=== PATIENT | female | born 1975 | race Asian ===

== ENCOUNTER 2017-11-25 11:39 | Inpatient (IN) | payer SELFPAY ==
--- NOTE | 2017-11-25 11:54 | EDPHY ---
H & P HPI/ROS: CHIEF COMPLAINT: Traumatic back pain HISTORY OF PRESENT ILLNESS: The patient is a 42 y/o female arriving via EMS complaining of left lower back pain secondary to falling while skiing this morning around 09:00, about 3 hours ago. Her family member describes falling on her back then sliding down the hill until she hit a tree stump. She denies striking her head or losing consciousness. She was not wearing a helmet. She has severe pain in her lumbar spine, left flank, and lower left ribs. She denies dyspnea, extremity injuries, weakness, paresthesias. She received 100mcg IV Fentanyl en route with some control of her pain. She states she is normally healthy. REVIEW OF SYSTEMS: A ten point review of systems was performed and is negative with the exception of the items mentioned in the HPI. Past medical history: Denies Past surgical history: Denies Family history: Noncontributory Social history: at bedside. She has 2 children. 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 Her is a food science professor. They are visiting [place], on a ski vacation. General: The patient appears uncomfortable. The patient is alert. [place] Coma Score is 15. Head: Normocephalic/atraumatic. No Rodgers's sign. No raccoon eyes. Neck: Nontender with palpation of the cervical spine in the midline. No pain with active range of motion of her neck. Trachea is midline. Eyes: PERRLA. EOMI. No subconjunctival hemorrhage. Ears nose and throat: No hemotympanums. Nares are patent and without clotted nasal blood. No dental injury or malocclusion. Airway is patent. Lungs and thorax: Breath sounds are equal and audible bilaterally. No wheezes , rales, or rhonchi. Tenderness to the left lower lateral ribcage, no crepitus or bony deformity appreciated. Cardiac: Heart has regular rate and rhythm without murmur, rub, or gallop. Abdomen: Soft, nontender, and nondistended. No guarding or rebound. Rectal: As per Dr. Sanz please exam. Back: Tenderness over upper lumbar-lower thoracic midline spine. Left flank tenderness. No ecchymosis or abrasions. No step-off. Skin: No ecchymosis. Skin is warm and dry. Extremities: No bony point tenderness with evaluation of all 4 extremities, hands, and feet. Pelvis is stable. Hips are nontender. Pulses: 2+ femoral and dorsalis pedis pulses bilaterally. Neuro: The patient is alert and oriented. GCS 15. Sensation is intact to light touch over all 4 extremities. Strength is 5 over 5 with testing of major motor groups. PERRLA. EOMI. Facial expression symmetric. Hearing intact to spoken voice. Tongue midline. Facial sensation intact to light touch. SCM and shoulder shrug 5/5. Constitutional: Initial Vital Signs Temperature (C) 36.5 C 11/25/17 12:04 Heart Rate 71 11/25/17 12:04 Respiratory Rate 18 11/25/17 12:04 Blood Pressure 120/65 11/25/17 12:04 O2 Sat (%) 93 11/25/17 12:04 O2 Delivery Mode Room Air Allergies/Adverse Reactions: penicillin G Allergy (Verified 11/25/17 12:04) Home Medications: Medication Instructions Recorded Cholecalciferol Vit D3 [Vitamin D3 1,000 units PO DAILY 11/25/17 (*)] Herbals/Supplements -Info Only 1 ea PO DAILY 11/25/17 Multivitamins [Multivitamin (*)] 1 each PO DAILY 11/25/17 Medical Decision Making - Diagnostics Imaging: Discussed imaging studies w/ call center dispatcher Radiologist, I viewed and interpreted images myself ED Course/Re-evaluation: This is a normally healthy 42 y/o female presenting with thoraco lumbar back pain after falling while skiing and hitting a tree stump. She has severe tenderness over the T-L junction with left flank and left lower lateral rib tenderness. She is neurovascularly intact with no visible trauma on exam. Hemodynamically stable & equal breath sounds bilaterally. Plan for bedside FAST exam, labs, pain management, and CTs of lumbar spine, thoracic spine, chest, and abdomen/pelvis. 100mcg IV Fentanyl administered for pain. Procedure: FAST Trauma ultrasound. Limited transthoracic ultrasound was performed and interpreted by myself for the indication of: blunt trauma utilizing the thoracoabdominal emergency ultrasound protocol. The pericardium was visualized and found to be negative for pericardial fluid. Limited abdominal ultrasound for blunt abdominal trauma. 1) The right upper quadrant was visualized and was found to be negative for intraperitoneal fluid. 2) The left upper quadrant was visualized and found to be negative for intraperitoneal fluid. Limited pelvic ultrasound was conducted for abdominal trauma. The bladder was visualized and did not reveal an anechoic area outside of the adjacent urinary bladder. Bladder was distended with urine. The study was felt to be negative for free intraperitoneal fluid The procedure was performed by myself, Dr. Yao. Initial report of CT scans reveal a T12 burst fracture with spinous process fractures from T6 through L1 and posterior left rib fractures T7 through T12. Awaiting radiologist's interpretation of CTs. Bilateral hemothoraces, worse on the left than on the right. No pneumothorax. Trauma surgery paged. 1341: Consulted with Dr. Hauser, surgeon, he will assess patient in the ED. 1400: Consulted with Dr. Deras, neurosurgery. He requests a thoracic spine MRI. Neurosurgery will assess patient. 1403: Consulted with Dr. Hauser in the ED and updated him on CT results. He will assess patient in the ED. This patient underwent serial examinations while in the emergency department. She was placed on spinal precautions after her initial evaluation. She remained neurologically intact with normal motor and sensory function throughout her stay in the department. She is being admitted to the intensive care unit. She will likely need surgery for an unstable T12 burst fracture. She received IV Dilaudid for pain control. Critical care time spent by me, Dr. Yao, exclusively with this patient was 45 minutes, exclusive of PA time and exclusive of procedures. The organ system at risk was multisystem including pulmonary and neurologic. Time spent in urgent assessment, serial assessments of patient, discussion with patient and family, consideration of interventions, review of CT scans, and consultation with neurosurgery, radiology, and trauma surgery. Differential Diagnosis: I considered a differential diagnosis of traumatic injury that includes but is not limited to intracranial hemorrhage, skull fracture, concussion, vertebral injury, spinal cord injury, intrathoracic injury, intra-abdominal injury, long bone fractures, contusions, abrasions, and lacerations. - Data Points Medications Given: Famotidine/Sodium Chloride (Pepcid 20 Mg (Premix)) 50 mls @ 200 mls/hr IV Q12HRS ROSARIO Stop: 05/24/18 20:59 Last Admin: 11/25/17 21:56 Dose: 50 mls Morphine Sulfate (Morphine) 1 - 2 mg IVP Q1HR PRN PRN Reason: Pain, Severe Unable to Take PO Stop: 12/05/17 15:22 Last Admin: 11/26/17 06:43 Dose: 2 mg Ondansetron HCl (Zofran) 4 mg IVP Q4HRS PRN PRN Reason: Nausea/Vomiting, Can't Take PO Stop: 05/24/18 15:22 Last Admin: 11/25/17 17:29 Dose: 4 mg Senna/Docusate Sodium (Senokot-S) 1 - 2 tab PO BID ROSARIO PRN Reason: Protocol Stop: 05/24/18 20:59 Last Admin: 11/25/17 21:55 Dose: 1 tab Discontinued Medications Fentanyl (Sublimaze) 100 mcg IVP EDNOW ONE Stop: 11/25/17 12:32 Last Admin: 11/25/17 12:31 Dose: 100 mcg Hydromorphone HCl (Dilaudid) 0.5 mg IVP EDNOW ONE Stop: 11/25/17 15:09 Last Admin: 11/25/17 15:21 Dose: 0.5 mg Departure - Departure Disposition: [facility] Acute Clinical Impression: T12 burst fracture, Hemothorax on left, Hemothorax, right Fracture of spinous process of thoracic vertebra Qualifiers: Encounter type: initial encounter Fracture type: closed Qualified Code(s): S22.008A - Other fracture of unspecified thoracic vertebra, initial encounter for closed fracture Fracture of spinous process of lumbar vertebra Qualifiers: Encounter type: initial encounter Fracture type: closed Qualified Code(s): S32.009A - Unspecified fracture of unspecified lumbar vertebra, initial encounter for closed fracture Ribs, multiple fractures Qualifiers: Encounter type: initial encounter Fracture type: closed Laterality: left Qualified Code(s): S22.42XA - Multiple fractures of ribs, left side, initial encounter for closed fracture Condition: Serious Report Scribed for: Dolly Yao Report Scribed by: Aubree Contreras Date of Report: 11/25/17 Time of Report: 11:55 Physician Review and Approval Statement: 11/25/17 11:54 Portions of this note were transcribed by the medical doctor nuclear medicine. I, Dr. Dolly Yao, personally performed the history, physical exam, and medical decision- making; and confirmed the accuracy of the information in the transcribed note.
[2017-11-25] MEDS ORDERED: fentaNYL 100 MCG/2 ML INJ ONE (12:30)
[2017-11-25] MEDS ORDERED: fentaNYL 100 MCG/2 ML INJ IVP ONE (12:31)
[2017-11-25] MEDS ORDERED: IOPAMIDOL (ISOVUE-300) 100 ML BTL ONE (12:53)
[2017-11-25 14:35] LABS: PLATELET COUNT 261 10^3/uL (150-400)
[2017-11-25] MEDS ORDERED: HYDROmorphONE/DILAUDID 1 MG/ML INJ ONE (15:02)
[2017-11-25] MEDS ORDERED: HYDROmorphONE/DILAUDID 1 MG/ML INJ IVP ONE (15:08)
[2017-11-25] MEDS ORDERED: ONDANSETRON 4 MG/2 ML VIAL IVP PRN (15:23)
[2017-11-25] MEDS ORDERED: NALOXONE HCL 0.4 MG/ML INJ IVP PRN (15:23)
[2017-11-25] MEDS ORDERED: LORazepam 2 MG/ML INJ IVP PRN (15:23)
--- NOTE | 2017-11-25 15:29 | PDGENHP ---
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 She was at [email or web address] and lost control and skidded into the base of a tree. She did not lose consciousness. She was brought by skills instructor and EMS to the hospital for evaluation. She complains of back pain and left side pain. She denies other injury or trauma at this time. History Information - Allergies/Home Medication List Allergies/Adverse Reactions: penicillin G Allergy (Verified 11/25/17 12:04) Home Medications: Cholecalciferol Vit D3 [Vitamin D3 (*)] 1,000 units PO DAILY 11/25/17 [Last Taken Unknown] Herbals/Supplements -Info Only 1 ea PO DAILY 11/25/17 [Last Taken Unknown] Multivitamins [Multivitamin (*)] 1 each PO DAILY 11/25/17 [Last Taken Unknown] I have personally reviewed and updated: family history, medical history, social history, surgical history - Past Medical History no pertinent PMH - Surgical History Reports: no pertinent surgical hx - Family History Positive for: non-pertinent - Social History Smoking Status: Never smoked Review of Systems Review of Systems: ROS: 10pt was reviewed & negative except for what was stated in HPI & below Muscolosketal: Reports: back pain Physical Exam Physical Exam: GCS 15. Alert and oriented x4 Sclerae anicteric pupils 3 mm reactive Bite intact/Midface stable trachea midline regular rate and rhythm Clear to auscultation bilaterally Abdomen soft nontender nondistended no hernias no ecchymoses no hepatosplenomegaly Hip stable to lateral compression 2+ over 2+ femoral dorsalis pedis pulses Skin normal turgor and tone Neurologically intact Back with step-off in the mid back with tenderness over mid and lower thoracic spine Normal rectal tone no gross blood Temp Pulse Resp BP Pulse Ox 36.5 C 72 16 120/78 97 11/25/17 12:04 11/25/17 13:35 11/25/17 13:35 11/25/17 13:35 11/25/17 13:35 Lab Data & Imaging Review 11/25/17 14:22 11/25/17 14:22 WBC 15.81 10^3/uL (3.80-9.50) H 11/25/17 14:22 RBC 4.04 10^6/uL (4.18-5.33) L 11/25/17 14:22 Hgb 12.5 g/dL (12.6-16.3) L 11/25/17 14:22 Hct 37.5 % (38.0-47.0) L 11/25/17 14:22 MCV 92.8 fL (81.5-99.8) 11/25/17 14:22 MCH 30.9 pg (27.9-34.1) 11/25/17 14:22 MCHC 33.3 g/dL (32.4-36.7) 11/25/17 14: RDW 12.8 % (11.5-15.2) 11/25/17 14: Plt Count 261 10^3/uL (150-400) 11/25/17 14:22 MPV 9.7 fL (8.7-11.7) 11/25/17 14:22 Neut % (Auto) 91.7 % (39.3-74.2) H 11/25/17 14:22 Lymph % (Auto) 3.9 % (15.0-45.0) L 11/25/17 14:22 [place] % (Auto) 3.7 % (4.5-13.0) L 11/25/17 14: Eos % (Auto) 0.0 % (0.6-7.6) L 11/25/17 14:22 Baso % (Auto) 0.3 % (0.3-1.7) 11/25/17 14: Nucleat RBC Rel Count 0.0 % (0.0-0.2) 11/25/17 14:22 Absolute Neuts (auto) 14.50 10^3/uL (1.70-6.50) H 11/25/17 14:22 Absolute Lymphs (auto) 0.62 10^3/uL (1.00-3.00) L 11/25/17 14:22 Absolute Monos (auto) 0.59 10^3/uL (0.30-0.80) 11/25/17 14:22 Absolute Eos (auto) 0.00 10^3/uL (0.03-0.40) L 11/25/17 14:22 Absolute Basos (auto) 0.04 10^3/uL (0.02-0.10) 11/25/17 14:22 Absolute Nucleated RBC 0.00 10^3/uL (0-0.01) 11/25/17 14:22 Immature Gran % 0.4 % (0.0-1.1) 11/25/17 14:22 Immature Gran # 0.06 10^3/uL (0.00-0.10) 11/25/17 14:22 Sodium 140 mEq/L (135-145) 11/25/17 14:22 Potassium 3.9 mEq/L (3.5-5.2) 11/25/17 14:22 Chloride 101 mEq/L (97-110) 11/25/17 14:22 Carbon Dioxide 27 mEq/l (22-31) 11/25/17 14:22 Anion Gap 12 mEq/L (8-16) 11/25/17 14:22 BUN 16 mg/dL (7-23) 11/25/17 14:22 Creatinine 0.6 mg/dL (0.6-1.0) 11/25/17 14:22 Estimated GFR > 60 11/25/17 14:22 Glucose 113 mg/dL (70-100) H 11/25/17 14:22 Calcium 9.2 mg/dL (8.5-10.4) 11/25/17 14:22 Imaging Review: Imaging Impressions Abdomen CT 11/25/17 12:45 Impression: No abdominal or pelvic injury. Chest CT 11/25/17 12:45 Impression: 1. Complex thoracic spine fractures as separately described on CT scan of the thoracic spine. 2. No additional fractures in the chest. 3. No mediastinal injury. Findings were discussed with Dr. Jessica Hauser and Dr. Dolly Yao at [address] 11/25/17 12:45 Impression: L1 posterior spinous process fracture with displacement. Otherwise, no additional fractures in the lumbar spine. Thoracic Spine CT 11/25/17 12:45 Impression: 1. Unstable burst fracture of T12, with a minimal amount of retropulsed fragment. 2. Despite of the levoscoliosis and the reversal of the thoracolumbar lordosis caused by the burst fracture, there is no CT evidence for significant spinal canal stenosis. 3. Spinous process fractures from T6 to L1. 4. Left-sided costovertebral posterior rib junctional fractures from T7 to T12, causing hemothorax on the left. Findings were discussed with Dr. Dolly Yao, and also with Dr. Edin Hauser, at 1350 hours. Visualized and Interpreted imaging results: Yes Assessment & Plan Assessment: Fracture of spinous process of lumbar vertebra (Acute) Fracture of spinous process of thoracic vertebra (Acute) Hemothorax, right (Acute) T12 burst fracture (Acute) Plan: chest tube if patient goes to the operating room. The risks benefits and alternatives to this have been outlined with the patient and her . Acutely the patient has no respiratory distress with sats of 93% on room air respiratory rate of 16 Neurosurgery consultation has been requested for her spinal injuries including T6 through L1 spinous process fractures some minimally displaced, T12 burst fracture with compression and loss of lumbar lordosis rib fracture posterior associated with vertebral body fracture of T12 not significant except for contribution to hemothorax
--- NOTE | 2017-11-25 17:03 | GCON ---
[f rep st] CONSULTATION PULMONARY/CRITICAL CARE CONSULTATION DATE OF CONSULTATION: 11/25/2017 REFERRING PHYSICIAN: Edin Hauser MD REASON FOR REFERRAL: Evaluation and management of pleural effusion/hemothorax. HISTORY OF PRESENT ILLNESS: The patient is a 42-year-old woman who was in her usual state of good he alth when she was skiing today at [place] and lost control. She skidded into the base of a tree. The re was no loss of consciousness. She was brought into the emergency department, complaining of back and left-sided pain. She denies any loss of motor or sensory function in her legs. She denies any s hortness of breath. She does have significant back pain. She does not have any cough. She denies n ausea or vomiting. PAST MEDICAL HISTORY: No chronic medical conditions. MEDICATIONS: Multivitamins and supplements. ALLERGIES: Penicillin. SOCIAL HISTORY: The patient does not smoke or drink. FAMILY HISTORY: Unremarkable. REVIEW OF SYSTEMS: A 10-point review of systems adds nothing to the history of present illness. PHYSICAL EXAMINATION: GENERAL: The patient is awake and alert. She is in no acute distress. VITAL SIGNS: Blood pressure is 104/55 with a heart rate of 89. She is afebrile. Oxygen saturations are 92% on 2 L. HEENT: Normocephalic and atraumatic. No icterus. NECK: No adenopathy. Trachea is mi dline. CHEST: Clear to auscultation. CARDIAC: Regular rate and rhythm without murmur. ABDOMEN: Soft, nontender. Bowel sounds are present. EXTREMITIES: No clubbing, cyanosis, or edema. NEURO: The patient is awake and alert. She has no motor or sensory deficits. LABORATORY DATA: Hemoglobin is 12.5. Chemistry group was normal. CT scan of the chest shows a small left pleural effusion and an unstable burst fracture of T12. She has spine fractures from T6 to L1. Images were reviewed by me. ASSESSMENT: 1. T12 burst fracture. This is unstable based on radiographic criteria. Neurosurgery has been cons ulted. 2. Pleural effusion. This is likely a hemothorax. It is fairly small at this point. It may contin ue to enlarge. She does not have any significant respiratory compromise currently. RECOMMENDATIONS: 1. Pain control. 2. Neurosurgery consult. 3. Follow pleural effusion/hemothorax. If she goes to the operating room for thoracic spine surgery , it may be reasonable to proceed with a chest tube placement at that time. /[id number]/MODL
[2017-11-25] MEDS ORDERED: BISACODYL 10 MG SUPP PR PRN (17:27)
[2017-11-25] MEDS ORDERED: MAGNESIUM HYDROXIDE 30 ML UDCUP PO PRN (17:27)
[2017-11-25] MEDS ORDERED: diphenhydrAMINE 25 MG CAP PO PRN (17:27)
[2017-11-25] MEDS ORDERED: POLYETHYLENE GLYCOL 3350 17 GM PKT PO PRN (17:27)
[2017-11-25] MEDS ORDERED: METHOCARBAMOL 750 MG TAB PO PRN (17:27)
[2017-11-25] MEDS ORDERED: ONDANSETRON DISINTEGRATING 4 MG TAB PO PRN (17:27)
[2017-11-25] MEDS ORDERED: LACTULOSE 20 GM/30 ML UDCUP PO PRN (17:27)
[2017-11-25] MEDS ORDERED: D5W 1/2 NS W/ 20 KCl/L 1,000 ML IV SCH (17:30)
--- NOTE | 2017-11-25 20:20 | GCON ---
[f rep st] CONSULTATION DATE OF CONSULTATION: 11/25/2017 TIME OF EVALUATION: 5 p.m. REASON FOR CONSULTATION: T12 burst fracture. HISTORY OF PRESENT ILLNESS: Please note, this was a very healthy 42-year-old woman who is visiting here from [facility] with her family who states she was skiing today at [place] when she skidded into a tree stump. She did not have associated loss of consciousness and was wearing a helmet. When she hit the ground, she had immediate onset of thoracolumbar pain in the midline. No tingling, numbness, pain, or weakness into the lower extremities. She was taken by the ski technician in a sled with spinal precautions [place] and subsequently brought by EMS to [facility] for further evaluation and management. The patient was found to have a pleural effusion and imaging studies demonstrated a T12 burst fracture. The patient was subsequently admitted to the trauma service and a neurosurgical consultation requested. At this time, the patient is having some ongoing thoracolumbar back pain which is stable. No numbness, tingling, pain, or weakness of the lower extremities. She denies any saddle anesthesia. PAST MEDICAL HISTORY: None. MEDICATIONS: Prior to admission, multivitamins and supplements. ALLERGIES: Penicillin. SOCIAL HISTORY: The patient does not smoke or drink. She is and has 2 small children age 9 and 7 who are visiting with her. 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 FAMILY HISTORY: Negative for any neurological disorders. REVIEW OF SYSTEMS: Complete 10-point review of systems from the patient intake form were reviewed by myself, significant only for those noted above in the HPI. PHYSICAL EXAMINATION: VITALS: Blood pressure is 104/55. Heart rate is 89, respiratory rate 26. She is saturating 92% currently on 2 L nasal cannula. Temperature is 37 degrees. GENERAL: The patient is lying in the bed, is in no acute distress. She is quite pleasant and cooperative with the examination. Affect is appropriate. and children are at the bedside. HEENT: Head is atraumatic, normocephalic. Pupils are equal, round, and reactive to light bilaterally. Extraocular movements are intact. Face is symmetric. Tongue protrudes midline. Uvula and palate elevate symmetrically. She has intact sensation to her face bilaterally. Shoulder shrug is symmetric. MOTOR EXAM: Shows 5/5 strength with bilateral crop research scientist strength, biceps, triceps, deltoid, bilateral hip flexion, knee flexion and extension, plantar dorsiflexion, and extensor hallucis longus. SENSORY EXAM: She has intact sensation to light touch throughout all major dermatomes of the bilateral upper and lower extremities and throughout the flank. REFLEXES: She has 1+ reflexes at the bilateral brachioradialis and patella. She has no Mckeon's and no Babinski. NEUROLOGIC: Cranial nerves 2 through 12 appear to be intact. Extraocular movements are intact. Pupils are equal, round, and reactive to light bilaterally. Tongue protrudes midline. Uvula and palate elevate symmetrically. She has intact sensation on her face bilaterally. Conversation is intact to hearing bilaterally. Other: The patient has no evidence of any saddle anesthesia, is able to feel her Velazquez catheter. Denies any perianal or perineal numbness. MEDICAL DECISION MAKING: Patient underwent a CT and MRI of the thoracic spine, reviewed by myself on the [facility] PAC system. There is evidence of an unstable burst fracture of T12 with minimal amount of retropulsed fragment. There are spinous process fractures from T6 to L1 with costovertebral posterior rib junctional fractures from T7 to T12 with hemothorax on the left. MRI demonstrates effacement of the subarachnoid fluid around the spinal cord which appears to be normal in signal characteristics without evidence of transsection or contusions. There is distraction injury to the posterior elements of T12. The remainder of the thoracic spinal canal is intact and spinal cord remains normal signal characteristics throughout. There is a small epidural hematoma adjacent to the thoracic spinal cord without evidence of intracordal or cord transection with adjacent prevertebral hemorrhage. ASSESSMENT AND PLAN: The patient is a 42-year-old, very healthy [place] woman who is visiting [place] on a ski trip today when she had a skiing accident and developed acute onset of back pain with no neurological deficits. She was found to have an unstable T12 burst fracture. I reviewed the films with the patient and her in the intensive care unit room today. I discussed with them the treatment options available to them including bracing versus surgical intervention. I discussed the risks, benefits, pros and cons of both options for them. I am worried about the degree of instability of the spinal fracture itself, and given these findings they agree and wish to proceed forth with surgical stabilization. Dr. Deras is evp chief exploration officer this week and I have discussed the case with him and explained to the family that he will be doing the case tomorrow morning, which we have booked as a posterior T11 to L1 fusion with decompression for stabilization. We will order a Jessica brace for her to wear whenever greater than 30 degrees and out of bed. We will go and raise her head of bed up to 30 degrees for the evening but keep her on spinal precautions until surgery in the morning. We will let her eat and keep her n.p.o. after midnight. We will have antibiotics on-call to the OR and keep her on q.1 hour neuro checks this evening. I discussed this with the patient and her . If she has any changes in neurological condition, we will take her emergently to surgery. They understand the risks of surgery to include, but not limited to , stroke, , pneumonia, bleeding, infection, spinal fluid leak. Further additional surgery required, bone or hardware implant failure, paralysis, worsening of neurological condition or no improvement. Consents will be signed in the morning by Dr. Deras and the team when they arrive. We will also let Dr. Hauser know of the trauma service in the event that a chest tube is required preoperatively. All of their questions were answered this evening. /[id number]/MODL MTDD
[2017-11-25] MEDS: SENNOSIDES/DOCUSATE SODIUM TAB PO SCH (21:55)
[2017-11-25] MEDS: FAMOTIDINE 20 MG/NACL 50 ML IV SCH (21:56)
[2017-11-26] MEDS ORDERED: THROMBIN (BOVINE) 20,000 UNIT VIAL TP ONE ×2 (07:17→07:19)
[2017-11-26] MEDS ORDERED: CHLORHEXIDINE GLUC HIBICLENS 118 ML BTL TP ONE (07:17)
[2017-11-26] MEDS ORDERED: BACITRACIN 50,000 UNITS/10 ML SYR IRR ONE (07:18)
[2017-11-26] MEDS ORDERED: BUPIVACAINE 0.25% 30 ML SDV ONE (07:18)
[2017-11-26] MEDS ORDERED: CITRATE DEXTROSE SOLN 500 ML BAG ONE (07:19)
[2017-11-26] MEDS ORDERED: AVITENE POWDER 1 GM JAR TP ONE (07:20)
[2017-11-26] MEDS ORDERED: SURGIFLO MATRIX KIT WITH THROMBIN 8ml TP ONE (07:37)
--- NOTE | 2017-11-26 07:51 | PDANEPAE ---
ANE History of Present Illness T11- L1 fusion for unstable T12 burst fx ANE Past Medical History - Pulmonary History Hx Oxygen in Use at Home: No Hx Sleep Apnea: No Sleep Apnea Screening Result - Last Documented: Negative Pulmonary History Comment: L hemothorax - Endocrine History Hx Diabetes: No ANE Review of Systems Review of systems is: negative Review of Systems: - Exercise capacity Exercise capacity: >=4 METS ANE Patient History - Allergies Allergies/Adverse Reactions: penicillin G Allergy (Verified 11/25/17 12:04) - Home Medications Home medications: home medication list seen and reviewed Home Medications: Cholecalciferol Vit D3 [Vitamin D3 (*)] 1,000 units PO DAILY 11/25/17 [Last Taken Unknown] Herbals/Supplements -Info Only 1 ea PO DAILY 11/25/17 [Last Taken Unknown] Multivitamins [Multivitamin (*)] 1 each PO DAILY 11/25/17 [Last Taken Unknown] - NPO status NPO Status: no food or drink >8 hours NPO Since - Liquids (Date): 11/26/17 NPO Since - Liquids (Time): 20:00 NPO Since - Solids (Date): 11/25/17 NPO Since - Solids (Time): 14:00 - Anes Hx Anes Hx: no prior problems - Smoking Hx Smoking Status: Never smoked - Family Anes Hx Family Anes Hx: none ANE Labs/Vital Signs - Labs Result Diagrams: 11/25/17 14:22 11/25/17 14:22 - Vital Signs Blood Pressure: 106/59 Heart Rate: 77 Respiratory Rate: 31 O2 Sat (%): 99 Height: 162.56 cm Weight: 52.163 kg ANE Physical Exam - Airway Neck exam: FROM Mallampati Score: Class 2 Mouth exam: normal dental/mouth exam - Pulmonary Pulmonary: no respiratory distress - Cardiovascular Cardiovascular: regular rate and rhythym - ASA Status ASA Status: III ANE Anesthesia Plan Anesthesia Plan: general endotracheal anesthesia
[2017-11-26] MEDS ORDERED: MIDAZOLAM 2 MG/2 ML VIAL IVP ONE (08:06)
[2017-11-26] MEDS ORDERED: MIDAZOLAM 2 MG/2 ML VIAL ONE (08:13)
[2017-11-26] MEDS ORDERED: REMIFENTANIL HCL 1 MG VIAL ONE (08:27)
[2017-11-26] MEDS ORDERED: DEXAMETHASONE 4 MG/ML VIAL ONE (08:27)
[2017-11-26] MEDS ORDERED: HYDROmorphONE/DILAUDID 2 MG/ML INJ ONE (08:27)
[2017-11-26] MEDS ORDERED: ONDANSETRON 4 MG/2 ML VIAL ONE (08:27)
[2017-11-26] MEDS ORDERED: PROPOFOL 200 MG/20 ML VIAL ONE (08:27)
[2017-11-26] MEDS ORDERED: ROCURONIUM 50 MG/5 ML VIAL ONE (08:27)
[2017-11-26] MEDS ORDERED: PROPOFOL/EMULSION 500 MG/50 ML BOTTLE IV ONE (08:27)
[2017-11-26] MEDS ORDERED: LIDOCAINE 2% 100 MG/5 ML SYR ONE (08:27)
[2017-11-26] MEDS ORDERED: fentaNYL 100 MCG/2 ML INJ ONE ×2 (08:27→11:29)
[2017-11-26] MEDS ORDERED: ceFAZolin 1 GM VIAL ONE ×2 (09:01)
[2017-11-26] MEDS ORDERED: THROMBIN (BOVINE) 5,000 UNIT VIAL TP ONE (09:10)
[2017-11-26] MEDS ORDERED: NALOXONE HCL 0.4 MG/ML INJ IVP PRN ×2 (10:48→11:04)
[2017-11-26] MEDS ORDERED: morphINE PCA 30 MG/30 ML PCA IV PRN (10:48)
--- NOTE | 2017-11-26 10:55 | SOAPPROG ---
SOAP Progress Note Assessment/Plan: Assessment: 42 yo F sp T11-L1 fusion with T12 laminectomy of T21 burst fracture Plan: stable ok to transfer to 3N if ok with Dr Guardado PT/OT jewit brace when out of bed ok to start lovenox tomorrow please call with neuro changes seen by Dr Deras 11/26/17 10:54 Subjective: + back pain, no leg pain, no weakness. Objective: Vital Signs Temp Pulse Resp BP Pulse Ox 36.9 C 77 31 H 106/59 L 99 11/26/17 04:00 11/26/17 08:04 11/26/17 08:04 11/26/17 08:04 11/26/17 08:04 Laboratory Results 11/25/17 14:22 11/25/17 14:22 11/25/17 11/26/17 11/27/17 05:59 05:59 05:59 Intake Total 500 Output Total 950 Balance -450 awake, alert PERRL, EOMI TORO x4 + light touch ICD10 Worksheet Patient Problems: Problems Problem Status Onset Fracture of spinous process of lumbar vertebra Acute Fracture of spinous process of thoracic vertebra Acute Hemothorax on left Acute Hemothorax, right Acute Ribs, multiple fractures Acute T12 burst fracture Acute
[2017-11-26] MEDS ORDERED: NS W/ 20 KCl/L 1,000 ML IV SCH (11:00)
--- NOTE | 2017-11-26 11:03 | TRAUMAPN ---
Assessment/Plan: tertiary exam and daily exam no overnight events. pain controlled. no WIGGINS. no neck pain. referred left side abd pain. no ext numbness or tingling. afebrile. 100/70 70's 20-30 comfortable HEENT normal Neck nontender Heart with subtle 2/6 LUSB systolic murmur. Lungs clear Abd soft, mild left side tenderness - appear referred Pelvic nontender BUE / BLE normal Neuro - no deficits CXR - no progressive left chest fluid or PTX Unstable burst fracture of T12, with a minimal amount of retropulsed fragment. Spinous process fractures from T6 to L1. Left-sided costovertebral posterior rib junctional fractures from T7 to T12 with small hemothorax For OR today Available for chest tube placement if needed - suspect all retropleural blood from rib/spine trauma - discussed with family and anesthesia No new surgical issues at this time To floor postop if no intraop concerns Objective: Vital Signs Temp Pulse Resp BP Pulse Ox 36.9 C 77 31 H 106/59 L 99 11/26/17 04:00 11/26/17 08:04 11/26/17 08:04 11/26/17 08:04 11/26/17 08:04 Laboratory Results 11/25/17 14:22 11/25/17 14:22 11/25/17 11/26/17 11/27/17 05:59 05:59 05:59 Intake Total 500 Output Total 950 Balance -450
[2017-11-26] MEDS ORDERED: ONDANSETRON 4 MG/2 ML VIAL IVP PRN (11:04)
[2017-11-26] MEDS ORDERED: DIAZEPAM 10 MG/2 ML SYR IVP PRN (11:04)
[2017-11-26] MEDS ORDERED: OXYCODONE/APAP 5/325 TAB PO PRN (11:04)
[2017-11-26] MEDS ORDERED: PROMETHAZINE HCL 25 MG/ML INJ IVP PRN (11:04)
[2017-11-26] MEDS ORDERED: MEPERIDINE 25 MG/ML SYR IVP PRN (11:04)
[2017-11-26] MEDS ORDERED: HYDROCODONE/APAP 5/325 TAB PO PRN (11:04)
[2017-11-26] MEDS ORDERED: DEXAMETHASONE 4 MG/ML VIAL IVP PRN (11:04)
[2017-11-26] MEDS ORDERED: ACETAMINOPHEN 500 MG TAB PO PRN (11:04)
[2017-11-26] MEDS: SENNOSIDES/DOCUSATE SODIUM TAB PO SCH ×2 (11:06→22:52)
--- NOTE | 2017-11-26 11:06 | POSTANESTH ---
Post Anesthetic Evaluation Cardiovascular Status: Normal, Stable, Similar to Pre-Op Cond Respiratory Status: Normal, Stable, Similar to Pre-op Cond. Level of Consciousness/Mental Status: Can Participate in Eval, Mildly Sleepy, Arousable Pain Control: Adequate, Prn Tx Ordered Nausea/Vomiting Control: Adequate, Prn Tx Ordered Complications Possibly Related to Anesthesia: None Noted
[2017-11-26] MEDS: fentaNYL 100 MCG/2 ML INJ IVP PRN ×2 (11:30→11:35)
[2017-11-26] MEDS: FAMOTIDINE 20 MG/NACL 50 ML IV SCH (13:03)
--- NOTE | 2017-11-26 13:17 | GOP ---
[f rep st] OPERATIVE REPORT DATE OF OPERATION: 11/26/2017 SURGEON: Tyshawn Deras MD NEUROSURGEON: Tyshawn Deras MD. CLIP BAKER: MAXIME Matos. PREOPERATIVE DIAGNOSIS: T12 burst fracture. POSTOPERATIVE DIAGNOSIS: T12 burst fracture. PROCEDURE PERFORMED: 1. Open reduction and internal fixation of T12 burst fracture. 2. Placement of segmental pedicle screw fixation at T11 and L1. 3. Posterior spinal fusion, T11 to L1. 4. T11, T12 laminectomies. 5. Use of the operative microscope. 6. O-arm stereotactic navigation for screw placement. 7. [place] of local autograft. 8. Use of allograft bone morphogenetic proteins. 9. Intraoperative neurophysiological monitoring, including somatosensory evoked potentials and motor evoked potentials. FINDINGS: Successful open reduction and internal fixation of T12 burst fracture. SPECIMENS: There were no specimens. ESTIMATED BLOOD LOSS: 100 cc. INDICATIONS: The patient is a 42-year-old woman visiting from [facility]. She was skiing yesterday when she had a fall and presented to the [facility] emergency room with back pain. CT of the thoracic spine revealed a T12 burst fracture with some kyphosis and slight coronal deformit y. My partner Dr. Valverde saw her then and discussed the options of bracing versus surgery with her, and she preferred surgery as the recovery time may be better and we could fix her deformity. She pre sents electively this morning for surgery. She is neurologically intact. DESCRIPTION OF PROCEDURE: After informed consent was obtained from the patient, the patient was brou ght to the operating room and a formal time-out was performed, identifying the patient by name, [facility], avon record number, and date of . Preoperative antibiotics were given, the endotracheal tube was placed, and general endotracheal anesthesia was smoothly induced. The patient was then turned to the prone position on the Rosalio table. All appropriate pressure points were padded and checked. All appropriate leads were placed for intraoperative neurophysiologic monitoring, including somatosensory evoked potentials and motor evoked potentials. At this point, the lower thoracolumbar region was prepped and draped in the normal sterile fashion. The O-arm was brought into the field, and AP and lateral x-rays confirmed the location of the incisio n spanning the pedicles of T11 and L1. 10 cc of 0.25% Marcaine with epinephrine was infiltrated in t he skin for hemostasis. A skin incision made using a 10 blade, and the subcutaneous tissues were dis sected using monopolar electrocautery. The fascia was opened in the midline, and all the spinous pro cesses of T11, T12, and L1 were completely fractured and were removed and morselized for local autogr aft. The paraspinous muscles were taken down laterally, exposing the transverse processes of T11 and L1. The fracture at T12 was significant, and the left-sided facet was completely disrupted, and the ligam ent was significantly injured as well. The stereotactic arc was then placed on the L1 spinous proces s and an O-arm spin was obtained, confirming the appropriate anatomy at T11 to L1. This was then use d to identify the entry point of the pedicle screws at T11 and L1 on both sides. The entry points we re decorticated using the high-speed drill, and a 4.5 to 5.5 mm tap was used to tap each pedicle. We then placed pedicle screws under direct stereotactic vision of the Stealth. At each level, the pedi tricia was measured, and 6.5 x 45 mm Medtronic Solera screws were placed at T11 and L1 bilaterally. A 2 nd O-arm spin was obtained, showing that all the screws were in appropriate placement within the pedi cles and there was no breach. The screw heads were then stimulated, and all stimulated above a thres hold of 20. At this point, the operative microscope was brought onto the field, and a high-speed drill was used t o drill a full laminectomy at T11 and T12, completely decompressing the thecal sac at these levels. There was some epidural hematoma in this area that was evacuated. The dura was then covered with Gel foam. The transverse processes and facet joints of T11, T12 and L1 were then decorticated using the high-speed drill, and the locally harvested autograft from the lamina and spinous processes was chirinos lized and placed on this area for posterolateral fusion. This was supplemented with BMP. At this ti me, the screw heads were sized for bilateral 4.75 x 70 mm titanium rods, which were appropriately pratima t and placed across the screw heads. We then distracted the screw heads slightly on the right side, fixing the coronal deformity, and this was confirmed with AP and lateral x-rays. The screw heads wer e then all locked down and tightened to their final locked position. At this point, all bleeding was controlled with bipolar electrocautery and Gelfoam. The wound was co piously irrigated using bacitracin irrigation. The fascia was closed using interrupted 0 Vicryl sutu res. The superficial fascia was closed using interrupted 0 Vicryl sutures, the deep dermis was close d using interrupted 2-0 Vicryl, and the skin was closed using Dermabond. Prior to the closure, a sub fascial JEREMIAS drain was placed and tunneled out sterilely. At the end the procedure, all sponge and nee dle counts were correct. There were no complications. DRAINS: Subfascial JEREMIAS. FLUID AND URINE OUTPUT: Per the anesthesia record. /[id number]/MODL
[2017-11-26] MEDS: ceFAZolin 2 GM/SWFI 2 GM/20 ML SYR IVP SCH ×2 (14:26→22:53)
[2017-11-26] MEDS: HYDROCODONE/APAP 5/325 TAB PO PRN ×3 (14:32→23:11)
[2017-11-26] MEDS: FAMOTIDINE 20 MG TAB PO SCH (22:52)
[2017-11-27] MEDS: FAMOTIDINE 20 MG/NACL 50 ML IV SCH (00:32)
[2017-11-27] MEDS: oxyCODONE IR 5 MG TAB PO PRN (04:38)
[2017-11-27 05:08] LABS: PLATELET COUNT 210 10^3/uL (150-400)
[2017-11-27] MEDS: HYDROCODONE/APAP 5/325 TAB PO PRN ×6 (07:39→21:44)
[2017-11-27] MEDS: SENNOSIDES/DOCUSATE SODIUM TAB PO SCH ×2 (07:39→21:43)
[2017-11-27] MEDS: FAMOTIDINE 20 MG TAB PO SCH ×2 (07:40→21:44)
[2017-11-27] MEDS: ENOXAPARIN 40 MG/0.4 ML SYR SC SCH (09:28)
--- NOTE | 2017-11-27 09:32 | SOAPPROG ---
SOAP Progress Note Assessment/Plan: Assessment: 42 yo F POD #1 T11-L1 fusion with T12 laminectomy of T21 burst fracture Plan: stable doing well overall PT/OT jewit brace when out of bed ok to start lovenox today please call with neuro changes seen by Dr Deras 11/26/17 10:54 11/27/17 09:31 Subjective: continued back pain, no leg pain, no weakness. Objective: Vital Signs Temp Pulse Resp BP Pulse Ox 36.7 C 88 14 120/60 90 L 11/27/17 07:50 11/27/17 07:50 11/27/17 07:50 11/27/17 07:50 11/27/17 07:50 Laboratory Results 11/27/17 04:34 11/27/17 04:34 11/26/17 11/27/17 11/28/17 05:59 05:59 05:59 Intake Total 500 1850 500 Output Total 950 1590 Balance -450 260 500 AAOx4, +FC PERRL, EOMI, no facial droop 5/5 + light touch C/D/I ICD10 Worksheet Patient Problems: Problems Problem Status Onset Fracture of spinous process of lumbar vertebra Acute Fracture of spinous process of thoracic vertebra Acute Hemothorax on left Acute Hemothorax, right Acute Ribs, multiple fractures Acute T12 burst fracture Acute
--- NOTE | 2017-11-27 16:33 | ASMTCMCOM ---
CM Note CM Note Notes: PT/OT cleared pt. Anticipate he will have no DC needs. Date Signed: 11/27/2017 04:33 PM Electronically Signed By:Diane Morin LCSW
--- NOTE | 2017-11-27 18:36 | TRAUMAPN ---
Assessment/Plan: 42yo F s/p skiing accident with T12 burst fx s/p ORIF - VSS, HDS - patients pain appears well controlled - JEREMIAS in place and is SS in nature, she has been OOB ambulating without issue - her lungs are clear and her CXR today (images personally reviewed) is reassuring - We discussed incentive spirometer and she is currently pulling around 500cc, I asked her to work towards 2000cc - Dispo: pending PT/Ot clearance. Patient eager to fly back to [facility] after she is discharged, no barriers to flying from surgery/chest standpoint Subjective: doing well, states that her pain is well controlled. Objective: Vital Signs Temp Pulse Resp BP Pulse Ox 37.1 C 88 14 110/60 92 11/27/17 15:27 11/27/17 15:27 11/27/17 15:27 11/27/17 15:27 11/27/17 15:27 Laboratory Results 11/27/17 04:34 11/27/17 04:34 11/26/17 11/27/17 11/28/17 05:59 05:59 05:59 Intake Total 500 1850 800 Output Total 950 1590 445 Balance -450 260 355
[2017-11-27 22:30] VITALS: RESP 16
[2017-11-28] MEDS: HYDROCODONE/APAP 5/325 TAB PO PRN ×2 (03:54→17:26)
[2017-11-28 07:34] VITALS: O2SAT 94
[2017-11-28] MEDS: oxyCODONE IR 5 MG TAB PO PRN ×2 (08:35→14:37)
[2017-11-28] MEDS: SENNOSIDES/DOCUSATE SODIUM TAB PO SCH (08:35)
[2017-11-28] MEDS: ENOXAPARIN 40 MG/0.4 ML SYR SC SCH (08:35)
[2017-11-28] MEDS: FAMOTIDINE 20 MG TAB PO SCH (08:35)
--- NOTE | 2017-11-28 10:25 | TRAUMAPN ---
Assessment/Plan: 42yo F s/p skiing accident with T12 burst fx s/p ORIF Pt OOB and ambulating with Jewit brace when seen. Pain seems well controlled. Biggest complaint is lack of bowel movement. She is on bowel protocol. VSS, HDS Abdomen: soft, nontender, +BS Chest: CTA bilaterally. Continue incentive spirometer Neuro: CN 2-12 grossly intact Dispo: pending PT/OT clearance. Patient eager to fly back to [facility] after she is discharged, no barriers to flying from surgery/chest standpoint Objective: Vital Signs Temp Pulse Resp BP Pulse Ox 36.8 C 89 16 110/56 L 94 11/28/17 07:33 11/28/17 07:33 11/28/17 07:33 11/28/17 07:33 11/28/17 07:33 Laboratory Results 11/27/17 04:34 11/27/17 04:34 11/27/17 11/28/17 11/29/17 05:59 05:59 05:59 Intake Total 1850 1750 Output Total 1590 845 Balance 260 905
--- NOTE | 2017-11-28 11:07 | NEUSURGPN ---
Date of Surgery: 11/26/17 Post Op Day: 2 Assessment/Plan: Assessment: 42 yo F POD #2 T11-L1 fusion with T12 laminectomy of T21 burst fracture Plan: -Patient stable doing well, pain managed with oral medications -PT/OT -Wear brace when out of bed -Will remove JEREMIAS today -Ok to dc today -Patient discussed with Dr Deras -Please call neurosurgery with any questions/concerns Subjective: Patient resting, no complaints Objective: AxO x3 PERRl EOMI 5/5 BUE, BLE Sensation intact to light touch BLE Dressing CDI Neuro Check Frequency: per routine Urinary Catheter in Place: No Catheter Insertion Date: 11/25/17 - Physician Discussed Patient with : [facility] Physical Exam - Vitals, I&O, Labs I and O 11/27/17 11/28/17 11/29/17 05:59 05:59 05:59 Intake Total 1850 1750 Output Total 1590 845 Balance 260 905 Weight 52.163 kg Intake: Oral (ml) 700 1750 IV Intake (ml) 1100 IV Infused (ml) 50 Famotidine 20 mg/NaCl 50 50 ml @ 200 mls/hr IV Q12HRS [facility] Rx#:[id number] Output: Urine (ml) 1250 800 Catheter 150 Toilet 1100 800 Estimated Blood Loss (ml) 100 Emesis (ml) 0 JEREMIAS Drain Output (ml) 240 45 Right Back Rosalio Shea 240 45 Other: Intake Quantity Yes Sufficient Output Comment Toilet blood in urine. pt on menses Number of Voids Toilet 1 1 Vital Signs Temp Pulse Resp BP Pulse Ox 36.8 C 89 16 110/56 L 94 11/28/17 07:33 11/28/17 07:33 11/28/17 07:33 11/28/17 07:33 11/28/17 07:33 Laboratory Results 11/27/17 04:34 11/27/17 04:34 ICD10 Worksheet Patient Problems: Problems Problem Status Onset Fracture of spinous process of lumbar vertebra Acute Fracture of spinous process of thoracic vertebra Acute Hemothorax on left Acute Hemothorax, right Acute Ribs, multiple fractures Acute T12 burst fracture Acute
--- NOTE | 2017-11-28 13:01 | SOAPPROG ---
SOAP Progress Note Assessment/Plan: Assessment: Doing well and ambulating after T12 burst fracture which has been repaired and multiple left rib fractures Chest x-ray stable Plan: Follow-up chest x-ray, home soon 11/28/17 13:00 Objective: Vital Signs Temp Pulse Resp BP Pulse Ox 36.8 C 89 16 110/56 L 94 11/28/17 07:33 11/28/17 07:33 11/28/17 07:33 11/28/17 07:33 11/28/17 07:33 Laboratory Results 11/27/17 04:34 11/27/17 04:34 11/27/17 11/28/17 11/29/17 05:59 05:59 05:59 Intake Total 1850 1750 Output Total 1590 845 20 Balance 260 905 -20 ICD10 Worksheet Patient Problems: Problems Problem Status Onset Fracture of spinous process of lumbar vertebra Acute Fracture of spinous process of thoracic vertebra Acute Hemothorax on left Acute Hemothorax, right Acute Ribs, multiple fractures Acute T12 burst fracture Acute
--- NOTE | 2017-11-28 13:53 | ASMTCMCOM ---
CM Note CM Note Notes: Patient medically cleared for discharge. Per therapies patient is independent. No needs identified. CM available should needs arise. Date Signed: 11/28/2017 01:53 PM Electronically Signed By:María Elena De Jesus RN
[2017-11-28 15:55] VITALS: BP 121/67; PULSE 85; TEMP 98.3
== END 2017-11-28 17:49 | disposition home or self-care (01) | DRG 460 ==
LOC: F2N 15:50 → F3N 11-26 11:20
PROVIDERS: ADMIT Surgery; ATTEND Surgery
PROC: 3E0U0GB Introduction of Recombinant Bone Morphogenetic Protein into Joints, Open Approach (ICD-10-PCS; principal; 2017-11-26 08:00)
PROC: 0RG60AJ Fusion of Thoracic Vertebral Joint with Interbody Fusion Device, Posterior Approach, Anterior Column, Open Approach (ICD-10-PCS; principal; 2017-11-26 08:00)
PROC: 0PB40ZZ Excision of Thoracic Vertebra, Open Approach (ICD-10-PCS; principal; 2017-11-26 08:00)
PROC: 0RGA0AJ Fusion of Thoracolumbar Vertebral Joint with Interbody Fusion Device, Posterior Approach, Anterior Column, Open Approach (ICD-10-PCS; principal; 2017-11-26 08:00)
PROC: 0PS404Z Reposition Thoracic Vertebra with Internal Fixation Device, Open Approach (ICD-10-PCS; principal; 2017-11-26 08:00)
DX: S22.082A Unstable burst fracture of T11-T12 vertebra, initial encounter for closed fracture (principal); S22.009A Unspecified fracture of unspecified thoracic vertebra, initial encounter for closed fracture; S22.42XA Multiple fractures of ribs, left side, initial encounter for closed fracture; V00.322A Snow-skier colliding with stationary object, initial encounter; V00.321A Fall from snow-skis, initial encounter; Y92.838 Other recreation area as the place of occurrence of the external cause; Y93.23 Activity, snow (alpine) (downhill) skiing, snowboarding, sledding, tobogganing and snow tubing
CPT/HCPCS: 96374; 97162-GP; 97165-GO; 97530-GP; C1713; J0171; J0690; J1100; J1170; J1650; J2001; J2250; J2270; J2405; J2704; J3010; J7060; Q9967